=== PATIENT | female | born 1935 | race Caucasian/White ===

== ENCOUNTER → 2021-05-09 | Outpatient (CLI) | payer MEDICARE, OTHER ==
[~2021-05-09] MED LIST: AMLODIPINE BESY10 MG PO; CELEBREX 200MG200 MG PO; CYCLOBENZAPRINE10 MG PO; DITROPAN XL5 MG PO; ELIQUIS5 MG PO; GABAPENTIN300 MG PO; HYDROCODON-ACE1 EAC2 PO; K-TAB ER20 MEQ PO; LASIX 40 MG TAB40 MG PO; LASIX TAB 20 MG20 MG PO; LEXAPRO TAB 1010 MG PO; LIDOCAINE 5% TD; METOPROLOL SUCC50 MG PO; MIRALAX17 GM PO; MUCINEX600 MG PO; MULTI FOR HER1 EACH PO; NEXIUM20 MG PO; NITROSTAT 0.4100 TAB SL; NORVASC10 MG PO; SYNTHROID88 MCG PO; TERAZOSIN HCL2 MG PO; VALSARTAN160 MG PO; VESICARE5 MG PO; VITAMIN B6 PO; VITAMIN C1000 MG PO; VITAMIN D21250 MCG PO; VITAMIN E PO; VOLTAREN GEL 1% TOP; ZOCOR20 MG PO
[2021-05-09 14:20] LABS: HEMOGLOBIN 12.9 gm/dl (12.3-15.3); RED BLOOD COUNT 3.86 M/UL (4.00-5.10); WHITE BLOOD COUNT 8.5 K/UL (4.5-11.0)
== END ==
LOC: OPSV2 12:45
PROVIDERS: Anesthesiology; Obstetrics & Gynecology
DX: Z01.812 Encounter for preprocedural laboratory examination (principal); N95.0 Postmenopausal bleeding
CPT/HCPCS: 36415; 80048; 81001; 85025

== ENCOUNTER 2021-05-11 09:03 | Day surgery (SDC) | payer MEDICARE, OTHER ==
[~2021-05-11] VITALS: Ht 157.5 cm; Wt 83.9 kg
[2021-05-11] MEDS ORDERED: ELIQUIS5 MG PO (13:17)
[2021-05-11 19:44] LABS: HEMOGLOBIN 11.8 gm/dl (12.3-15.3); RED BLOOD COUNT 3.63 M/UL (4.00-5.10); WHITE BLOOD COUNT 7.4 K/UL (4.5-11.0)
[2021-05-12 08:03] LABS: HEMOGLOBIN 11.2 gm/dl (12.3-15.3); RED BLOOD COUNT 3.43 M/UL (4.00-5.10)
[2021-05-12 08:07] LABS: WHITE BLOOD COUNT 10.3 K/UL (4.5-11.0)
== END 2021-05-12 08:00 | disposition home or self-care (01) ==
LOC: OR 09:03 → MED SURG 4 15:45 → OR 05-12 08:00
PROVIDERS: Internal Medicine; Obstetrics & Gynecology
PROC: 0U5B8ZZ Destruction of Endometrium, Via Natural or Artificial Opening Endoscopic (ICD-10-PCS; principal; 2021-05-11 13:30)
PROC: 0UDB7ZX Extraction of Endometrium, Via Natural or Artificial Opening, Diagnostic (ICD-10-PCS; 2021-05-11 13:30)
DX: C54.1 Malignant neoplasm of endometrium (principal); I11.0 Hypertensive heart disease with heart failure; I50.9 Heart failure, unspecified; I48.20 Chronic atrial fibrillation, unspecified; G62.9 Polyneuropathy, unspecified; I49.5 Sick sinus syndrome; K21.9 Gastro-esophageal reflux disease without esophagitis; E03.9 Hypothyroidism, unspecified; N32.81 Overactive bladder; N39.41 Urge incontinence; E66.9 Obesity, unspecified; Z68.33 Body mass index [BMI] 33.0-33.9, adult; Z88.1 Allergy status to other antibiotic agents; Z88.6 Allergy status to analgesic agent; Z88.8 Allergy status to other drugs, medicaments and biological substances; Z95.0 Presence of cardiac pacemaker; Z79.891 Long term (current) use of opiate analgesic; Z79.01 Long term (current) use of anticoagulants; Z79.899 Other long term (current) drug therapy; Z96.612 Presence of left artificial shoulder joint; Z96.611 Presence of right artificial shoulder joint; Z96.641 Presence of right artificial hip joint; Z96.653 Presence of artificial knee joint, bilateral; Z86.73 Personal history of transient ischemic attack (TIA), and cerebral infarction without residual deficits; Z90.49 Acquired absence of other specified parts of digestive tract
CPT/HCPCS: 36415; 71045; 80048; 85025; 93005; J1100; J2001; J2370; J2405; J2704; J2795; J3010; J7120

== ENCOUNTER → 2021-06-08 | Outpatient (CLI) | payer MEDICARE, OTHER | LOC: CT 08:28 | DX: C54.1 Malignant neoplasm of endometrium (principal) | CPT/HCPCS: 36415; 80053; 81001; 85025; Q9967 ==

== ENCOUNTER 2021-06-15 09:23 | Day surgery (SDC) | payer MEDICARE, OTHER ==
[~2021-06-15] VITALS: Ht 157.5 cm; Wt 88.9 kg
[2021-06-15 19:23] LABS: HEMOGLOBIN 11.7 gm/dl (12.3-15.3); RED BLOOD COUNT 3.58 M/UL (4.00-5.10); WHITE BLOOD COUNT 12.2 K/UL (4.5-11.0)
[2021-06-16 07:07] LABS: HEMOGLOBIN 11.7 gm/dl (12.3-15.3); RED BLOOD COUNT 3.61 M/UL (4.00-5.10); WHITE BLOOD COUNT 12.4 K/UL (4.5-11.0)
[2021-06-17 07:17] LABS: HEMOGLOBIN 11.8 gm/dl (12.3-15.3); RED BLOOD COUNT 3.58 M/UL (4.00-5.10); WHITE BLOOD COUNT 12.4 K/UL (4.5-11.0)
== END 2021-06-17 16:43 | disposition home or self-care (01) ==
LOC: OR 09:23 → MED SURG 4 16:00 → OR 06-17 16:43
PROVIDERS: Internal Medicine Infectious Disease; Obstetrics & Gynecology
DX: C54.1 Malignant neoplasm of endometrium (principal); N73.6 Female pelvic peritoneal adhesions (postinfective); N71.9 Inflammatory disease of uterus, unspecified; I11.0 Hypertensive heart disease with heart failure; I50.32 Chronic diastolic (congestive) heart failure; I48.91 Unspecified atrial fibrillation; K21.9 Gastro-esophageal reflux disease without esophagitis; E03.9 Hypothyroidism, unspecified; E78.5 Hyperlipidemia, unspecified; I49.5 Sick sinus syndrome; E66.9 Obesity, unspecified; Z88.1 Allergy status to other antibiotic agents; Z88.8 Allergy status to other drugs, medicaments and biological substances; Z95.0 Presence of cardiac pacemaker; Z79.01 Long term (current) use of anticoagulants; Z96.612 Presence of left artificial shoulder joint; Z96.611 Presence of right artificial shoulder joint; Z96.641 Presence of right artificial hip joint; Z96.653 Presence of artificial knee joint, bilateral; Z90.49 Acquired absence of other specified parts of digestive tract; Z87.891 Personal history of nicotine dependence; Z20.822 Contact with and (suspected) exposure to COVID-19
CPT/HCPCS: 36415; 71045; 80048; 80053; 85025; 85027; C1769; J0690; J1650; J2001; J2405; J2543; J2704; J2710; J2795; J3010; J7120